=== PATIENT | male | born 1960 | race Caucasian/White ===

== ENCOUNTER 2018-01-11 10:47 | Emergency (ER) | payer MEDICAID ==
[~2018-01-11] VITALS: Ht 185.4 cm; Wt 111.1 kg
[2018-01-11] MEDS ORDERED: ONDANSETRON ODT 4 MG TAB PO ONE (11:30)
[2018-01-11] MEDS ORDERED: cloNIDine HCL 0.1 MG TAB PO ONE (11:30)
[2018-01-11] MEDS ORDERED: HYDROcodone-ACET 10/325MG TAB PO ONE (11:30)
[2018-01-11 12:29] VITALS: BP 159/109
[2018-01-11 12:44] LABS: Basophils # (auto) 0 uL; Eosinophils # (auto) 0 uL; Hematocrit 49.3 % (41.0-53.0); Hemoglobin 16.9 g/dL (13.5-17.5); Lymphocytes # (auto) 0.4 uL; Lymphocytes % (auto) 3.9 % (10.0-50.0); Mean Corpuscular Hemoglobin 33.6 pg (28.0-32.0); Mean Corpuscular Hgb Conc. 34.4 g/dL (32.0-36.0); Mean Corpuscular Volume 97.7 fL (80.0-100.0); Monocytes % (auto) 8.8 % (0.0-12.0); Neutrophils # (auto) 9.4 uL; Neutrophils % (auto) 87.3 % (37.0-80.0); Platelet Count (auto) 186 10^3/uL (140-450); Red Blood Cells 5.04 10^6/uL (4.5-5.90); Red Cell Distribution Width 13.4 % (11.8-14.3); White Blood Cell 10.8 10^3/uL (4.4-10.8)
[2018-01-11 13:03] LABS: Albumin 3.9 g/dL (3.4-5.0); BUN/Creatinine Ratio 16.7; Bilirubin, Total 1.2 mg/dL (0.2-1.0); Calcium 9.1 mg/dL (8.5-10.1); Potassium 3.2 mmol/L (3.5-5.1); Total Protein 7.7 g/dL (6.4-8.2)
[2018-01-11 14:26] LABS: INR 1.02 (0.9-1.15); Prothrombin Time 10.9 sec (9.27-12.13)
== END 2018-01-11 12:39 | disposition home or self-care (01) ==
LOC: ER 10:47
DX: R11.2 Nausea with vomiting, unspecified (principal); I16.0 Hypertensive urgency; R42 Dizziness and giddiness; I10 Essential (primary) hypertension; F17.210 Nicotine dependence, cigarettes, uncomplicated
CPT/HCPCS: 36415; 70450; 80053; 85025; 85610; 93005; 99285; Q0162

== ENCOUNTER 2018-03-07 14:04 | Observation (INO) | payer MEDICAID, OTHER ==
[~2018-03-07] VITALS: Ht 185.4 cm; Wt 111.1 kg
[2018-03-07 15:19] LABS: Alanine Aminotransferase 104 U/L (16-61); Albumin 4.4 g/dL (3.4-5.0); Alkaline Phosphatase 72 U/L (45-117); Anion Gap 12 (5-15); Aspartate Aminotransferase 74 U/L (15-37); BUN/Creatinine Ratio 13.5; Bilirubin, Total 1.5 mg/dL (0.2-1.0); Blood Alcohol < 3.0 mg/dL (0-5); Blood Urea Nitrogen 14 mg/dL (7-18); Carbon Dioxide 30 mmol/L (21-32); Chloride 94 mmol/L (98-107); GFR African American 94 mL/min; GFR Non-African American 78 mL/min; Glucose 129 mg/dL (74-106); Potassium 3.3 mmol/L (3.5-5.1); Sodium 136 mmol/L (136-145); Total Protein 8.6 g/dL (6.4-8.2)
[2018-03-07 15:49] LABS: Urine Bacteria NONE SEEN /hpf (None Seen); Urine Blood Negative /uL (Negative); Urine Mucus FEW (None Seen); Urine Specific Gravity 1.028 (1.001-1.035); Urine WBC 16 /hpf (0 - 3)
[2018-03-07 17:25] LABS: Basophils # (auto) 0 uL; Basophils % (auto) 0.2 % (0.0-2.0); Eosinophils # (auto) 0 uL; Monocytes # (auto) 0.8 uL; Neutrophils # (auto) 7.7 uL; White Blood Cell 9.4 10^3/uL (4.4-10.8)
[2018-03-07 17:27] LABS: Hematocrit 50.6 % (41.0-53.0); Hemoglobin 17.5 g/dL (13.5-17.5); Lymphocytes # (auto) 0.9 uL; Lymphocytes % (auto) 9.5 % (10.0-50.0); Mean Corpuscular Hemoglobin 34.3 pg (28.0-32.0); Mean Corpuscular Hgb Conc. 34.6 g/dL (32.0-36.0); Mean Corpuscular Volume 99.1 fL (80.0-100.0); Monocytes % (auto) 8.3 % (0.0-12.0); Nucleated Red Blood Cells % 0.1 %; Platelet Count (auto) 210 10^3/uL (140-450); Red Blood Cells 5.11 10^6/uL (4.5-5.90); Red Cell Distribution Width 14.1 % (11.8-14.3)
[2018-03-07 19:30] VITALS: BP 170/91
[2018-03-07] MEDS ORDERED: SODIUM CHLORIDE 0.9% 1,000 ML IVB ONE (19:42)
[2018-03-07] MEDS ORDERED: ONDANSETRON HCL 4 MG/2 ML VIAL IV ONE (19:45)
[2018-03-07 20:36] LABS: Magnesium 1.8 mg/dL (1.6-2.6)
[2018-03-07] MEDS ORDERED: POTASSIUM CHL 20 Meq TABLET PO ONE (23:00)
== END 2018-03-07 23:28 | disposition home or self-care (01) | DRG 249 ==
LOC: ER 14:08 → OVERFLOW 14:09 → ER 23:28
PROVIDERS: ADMIT Family Medicine; ATTEND Family Medicine
DX: R11.2 Nausea with vomiting, unspecified (principal); E87.6 Hypokalemia; F17.210 Nicotine dependence, cigarettes, uncomplicated; I10 Essential (primary) hypertension
CPT/HCPCS: 36415; 71045; 74176; 80053; 80320; 81001; 82150; 83690; 83735; 85025; 96361; 96374; 99285; G0378; J2405; J7030

== ENCOUNTER 2020-05-22 10:30 | Inpatient (IN) | payer OTHER ==
[~2020-05-22] VITALS: Ht 172.7 cm; Wt 98.4 kg
[2020-05-22] MEDS ORDERED: MORPHINE SULF INJ 2 MG/ML SYRINGE 1ML IV ONE (10:45)
[2020-05-22] MEDS ORDERED: THIAMINE 100mg/ml INJ (200mg/2ml VIAL) IV ONE ×2 (10:45→15:15)
[2020-05-22] MEDS ORDERED: ONDANSETRON HCL 4 MG/2 ML VIAL IV ONE (10:45)
[2020-05-22] MEDS ORDERED: SODIUM CHLORIDE 0.9% 1,000 ML IV ONE (10:45)
[2020-05-22 11:29] LABS: Basophils # (auto) 0.1 10 ^3/uL (0-0.2); Basophils % (auto) 0.9 % (0.0-2.0); Eosinophils # (auto) 0.1 10 ^3/uL (0-0.8); Eosinophils % (auto) 0.6 % (0.0-7.0); Hematocrit 35.8 % (41.0-53.0); Hemoglobin 12.3 g/dL (13.5-17.5); Lymphocytes # (auto) 2.4 10 ^3/uL (0.4-5.4); Lymphocytes % (auto) 26.7 % (10.0-50.0); Mean Corpuscular Hemoglobin 33.9 pg (28.0-32.0); Mean Corpuscular Hgb Conc. 34.4 g/dL (32.0-36.0); Mean Corpuscular Volume 98.7 fL (80.0-100.0); Monocytes # (auto) 0.8 10 ^3/uL (0-1.3); Monocytes % (auto) 8.5 % (0.0-12.0); Neutrophils # (auto) 5.7 10 ^3/uL (1.6-8.6); Neutrophils % (auto) 63.3 % (37.0-80.0); Platelet Count (auto) 271 10^3/uL (140-450); Red Blood Cells 3.63 10^6/uL (4.5-5.90); Red Cell Distribution Width 13.3 % (11.8-14.3)
[2020-05-22 11:38] LABS: INR 1.13 (0.9-1.15); Partial Thromboplastin Time 24.3 sec (23.0-31.2)
[2020-05-22 11:39] LABS: Albumin 3.6 g/dL (3.4-5.0); Anion Gap 11 (5-15); Blood Urea Nitrogen 48 mg/dL (7-18); Calcium 8.8 mg/dL (8.5-10.1); Carbon Dioxide 30 mmol/L (21-32); Chloride 97 mmol/L (98-107); Glucose 152 mg/dL (74-106); Magnesium 1.7 mg/dL (1.6-2.6); Sodium 138 mmol/L (136-145)
[2020-05-22 11:44] LABS: Alanine Aminotransferase 63 U/L (16-61); Alkaline Phosphatase 49 U/L (45-117); Aspartate Aminotransferase 59 U/L (15-37); Bilirubin, Total 1.1 mg/dL (0.2-1.0); Blood Alcohol < 3.0 mg/dL (0-5); GFR African American 68 mL/min; GFR Non-African American 56 mL/min; Lactate Dehydrogenase 266 U/L (87-241); Total Protein 6.7 g/dL (6.4-8.2)
[2020-05-22 11:47] LABS: Potassium 2.6 mmol/L (3.5-5.1)
[2020-05-22] MEDS ORDERED: POTASSIUM EFFERVESENT TAB 25 MEQ PO ONE (12:00)
[2020-05-22] MEDS: LORazepam 2MG/ML-1ML VIAL IV ONE ×2 (12:48→13:45)
[2020-05-22] MEDS ORDERED: POTASSIUM CHLORIDE 80 MEQ, LIDOCAINE 1% (LOCAL ANESTH.) 6 ML in SODIUM CHL 0.9% 500 ML IV ONE (15:15)
[2020-05-22] MEDS ORDERED: MORPHINE SULF INJ 2 MG/ML SYRINGE 1ML IV PRN ×2 (15:15→18:15)
[2020-05-22] MEDS ORDERED: POTASSIUM CHL 20 Meq TABLET PO ONE (15:15)
[2020-05-22] MEDS ORDERED: LACTATED RINGER'S 1,000 ML IV ONE (15:15)
[2020-05-22] MEDS ORDERED: NITROGLYCERIN 0.4 MG SL TAB SL PRN (15:15)
[2020-05-22] MEDS ORDERED: LORazepam 2MG/ML-1ML VIAL IV PRN (15:30)
[2020-05-22] MEDS ORDERED: MAGNESIUM SULFATE 1GM/100ML 100 ML IV ONE (15:30)
[2020-05-22] MEDS ORDERED: MULTIPLE VITAMINS W/ MINERALS TAB PO ONE (15:30)
[2020-05-22] MEDS ORDERED: FOLIC ACID 1 MG TAB PO ONE (15:30)
[2020-05-22] MEDS: POTASSIUM CHL 20 Meq TABLET PO SCH (15:56)
[2020-05-22] MEDS: THIAMINE 100mg/ml INJ (200mg/2ml VIAL) IV SCH (15:56)
[2020-05-22] MEDS ORDERED: PANTOPRAZOLE 40 MG/10 ML VIAL INJ IV ONE (17:30)
[2020-05-22] MEDS: SODIUM CHLORIDE 0.9% 1,000 ML IV SCH (17:44)
[2020-05-22] MEDS ORDERED: ONDANSETRON HCL 4 MG/2 ML VIAL IV PRN (18:15)
[2020-05-22] MEDS ORDERED: ACETAMINOPHEN 325 MG TAB PO PRN (18:15)
[2020-05-22] MEDS ORDERED: DOCUSATE SOD 100 MG CAP PO PRN (18:15)
[2020-05-22] MEDS ORDERED: ALUM & MAG HYDROX-SIMETH LIQ(MAALOX) 30 ML PO PRN (18:15)
[2020-05-22] MEDS ORDERED: HYDROcodone-ACET 5/325MG TAB PO PRN (18:15)
[2020-05-22] MEDS ORDERED: LORazepam 0.5 MG TAB PO PRN (18:15)
[2020-05-22] MEDS ORDERED: hydrALAZINE HCL 20 MG/ML VL IV PRN (18:30)
[2020-05-22 18:41] LABS: Calcium 8.3 mg/dL (8.5-10.1); Potassium 3.1 mmol/L (3.5-5.1)
[2020-05-22 18:45] LABS: BUN/Creatinine Ratio 38.5
[2020-05-22 18:56] LABS: Cholesterol 133 mg/dL (< 200); HDL Cholesterol 72 mg/dL (40-59); LDL Cholesterol 54 mg/dL (< 100); Triglycerides 75 mg/dL (< 150)
[2020-05-22] MEDS: chlordiazePOXIDE HCL 25 MG CAP PO SCH ×2 (20:00→22:00)
[2020-05-22 20:30] LABS: Urine Bacteria NONE SEEN /hpf (None Seen); Urine Blood Negative /uL (Negative); Urine Specific Gravity 1.018 (1.001-1.035); Urine Sperm PRESENT /hpf (None Seen); Urine WBC 3 /hpf (0 - 3)
[2020-05-22 20:41] LABS: Alcohol, Urine < 3.0 mg/dL (0-10); Amphetamine Screen, Urine POSITIVE (NEGATIVE); Barbiturate Scree,Urine NEGATIVE (NEGATIVE); Benzodiazephine Screen, Urine NEGATIVE (NEGATIVE); Cannabinoid Screen, Urine NEGATIVE (NEGATIVE); Cocaine Screen, Urine NEGATIVE (NEGATIVE); Phencyclidine Screen, Urine NEGATIVE (NEGATIVE)
[2020-05-22 20:48] LABS: Opiate Scree,Urine NEGATIVE (NEGATIVE)
[2020-05-22] MEDS: SUCRALFATE 1 GM TAB PO SCH (22:53)
[2020-05-22] MEDS: ATORVASTATIN 20 MG TAB PO SCH (22:54)
[2020-05-22 23:00] VITALS: BP 121/70
[2020-05-23 00:41] VITALS: BP 121/70
[2020-05-23] MEDS ORDERED: HCTZ25T PO (02:12)
[2020-05-23] MEDS ORDERED: METO-169 PO (02:12)
[2020-05-23] MEDS: SODIUM CHLORIDE 0.9% 1,000 ML IV SCH ×2 (04:50→17:59)
[2020-05-23 05:03] VITALS: BP 114/66
[2020-05-23] MEDS: chlordiazePOXIDE HCL 25 MG CAP PO SCH ×2 (06:25→17:57)
[2020-05-23] MEDS: SUCRALFATE 1 GM TAB PO SCH ×4 (06:26→22:01)
--- NOTE | 2020-05-23 07:30 | NUR ---
Opening Shift Note Assuming care of patient at this time. Patient is awake and alert. Patient denies pain. Patient shows no signs or symptoms of distress or shortness of breath. Bed is locked and lowered with side rails up x2. Instructed patient on the plan of care for today and to call for assistance. Call light within reach. Will continue to round hourly and as needed.
[2020-05-23] MEDS: ASPirin 81 mg TAB PO SCH (09:54)
[2020-05-23] MEDS: MULTIPLE VITAMINS W/ MINERALS TAB PO SCH (09:54)
[2020-05-23] MEDS: FOLIC ACID 1 MG TAB PO SCH (09:55)
[2020-05-23] MEDS: ENOXAPARIN SOD 40 MG/0.4 ML SYRINGE SC SCH (09:56)
[2020-05-23] MEDS: PANTOPRAZOLE 40 MG/10 ML VIAL INJ IV SCH (09:57)
[2020-05-23 12:50] VITALS: BP 107/65
--- NOTE | 2020-05-23 13:00 | NUR ---
Patient Behavior Patient has remained awake and alert this morning. No signs or symptoms of alcohol withdrawal. Patient has been easy to arouse when resting with eyes closed.
[2020-05-23] MEDS ORDERED: POTASSIUM EFFERVESENT TAB 25 MEQ PO ONE (14:45)
[2020-05-23 16:34] VITALS: BP 131/79
--- NOTE | 2020-05-23 18:37 | NUR ---
Closing Shift Note Patient resting in bed. No distress noted. Patient showing no signs or symptoms of alcohol withdrawal during this shift.
--- NOTE | 2020-05-23 19:23 | NUR ---
Opening Shift Note Assumed care of patient, awake and alert. No S/S of distress/SOB, or pain. Patient has no s/s of alcohol withdrawal. Instructed on POC and to call for assistance PRN, will continue to monitor for changes Q1hr and PRN. Safety precautions maintained bed is in lowest position and locked, bed rails 2x.
[2020-05-23 22:00] VITALS: BP 126/76
[2020-05-23] MEDS: ATORVASTATIN 20 MG TAB PO SCH (22:01)
--- NOTE | 2020-05-24 01:43 | NUR ---
PAIN PATIENT COMPLAINS OF GENERAL PAIN OF 6 ON A PAIN SCALE OF 0-10. MEDICATED PER MD ORDERS.
--- NOTE | 2020-05-24 02:43 | NUR ---
PAIN REASSESSMENT PATIENT STATES HAVING NO PAIN AT THIS TIME. WILL CONTINUE TO MONITOR Q1 AND PRN.
[2020-05-24 05:00] VITALS: BP 121/72
[2020-05-24 05:40] LABS: Eosinophils # (auto) 0.2 10 ^3/uL (0-0.8); Hemoglobin 9.8 g/dL (13.5-17.5); Monocytes # (auto) 0.3 10 ^3/uL (0-1.3); Red Blood Cells 2.84 10^6/uL (4.5-5.90)
[2020-05-24 05:42] LABS: Basophils # (auto) 0.1 10 ^3/uL (0-0.2); Basophils % (auto) 1.5 % (0.0-2.0); Eosinophils % (auto) 4.6 % (0.0-7.0); Hematocrit 28.8 % (41.0-53.0); Lymphocytes # (auto) 1.1 10 ^3/uL (0.4-5.4); Lymphocytes % (auto) 32.6 % (10.0-50.0); Mean Corpuscular Hemoglobin 34.4 pg (28.0-32.0); Mean Corpuscular Volume 101.2 fL (80.0-100.0); Monocytes % (auto) 7.4 % (0.0-12.0); Neutrophils # (auto) 1.9 10 ^3/uL (1.6-8.6); Neutrophils % (auto) 53.9 % (37.0-80.0); Nucleated Red Blood Cells % 0.1 %; Platelet Count (auto) 171 10^3/uL (140-450); Red Cell Distribution Width 13.3 % (11.8-14.3); White Blood Cell 3.5 10^3/uL (4.4-10.8)
[2020-05-24 05:48] LABS: Albumin 2.8 g/dL (3.4-5.0); Calcium 8.5 mg/dL (8.5-10.1); Potassium 3.6 mmol/L (3.5-5.1)
[2020-05-24 05:52] LABS: Bilirubin, Total 0.6 mg/dL (0.2-1.0); Total Protein 5.4 g/dL (6.4-8.2)
[2020-05-24] MEDS: chlordiazePOXIDE HCL 25 MG CAP PO SCH (06:33)
[2020-05-24] MEDS: SUCRALFATE 1 GM TAB PO SCH ×2 (06:33→11:30)
--- NOTE | 2020-05-24 07:18 | NUR ---
End of Shift Note Endorsed care to dayshift RN. At this time patient has no s/s of distress or SOB.
[2020-05-24] MEDS: SODIUM CHLORIDE 0.9% 1,000 ML IV SCH (07:33)
[2020-05-24 09:05] VITALS: BP 159/84
[2020-05-24] MEDS: MULTIPLE VITAMINS W/ MINERALS TAB PO SCH (09:29)
[2020-05-24] MEDS: PANTOPRAZOLE 40 MG/10 ML VIAL INJ IV SCH (09:29)
[2020-05-24] MEDS: FOLIC ACID 1 MG TAB PO SCH (09:29)
[2020-05-24] MEDS: ENOXAPARIN SOD 40 MG/0.4 ML SYRINGE SC SCH (09:29)
[2020-05-24] MEDS: ASPirin 81 mg TAB PO SCH (09:29)
[2020-05-24] MEDS: POTASSIUM CHL 20 Meq TABLET PO SCH (09:30)
[2020-05-24] MEDS: THIAMINE 100mg/ml INJ (200mg/2ml VIAL) IV SCH (09:33)
[2020-05-24 12:15] VITALS: BP 116/76
--- NOTE | 2020-05-24 13:52 | NUR ---
Nutrition Assessment Notes Please refer to link for full assessment notes. Est Energy needs: [id number] kcals (17-20 kcal/kgBW) Est Protein needs: 79-98 gms/day (0.8-1.0 gm/kgBW) Will continue to monitor and reassess prn. Addendum: 05/24/20 at [address] Amended: Links added.
[2020-05-24 16:05] VITALS: BP 138/73
[2020-05-24 16:17] VITALS: BP 138/76
--- NOTE | 2020-05-24 17:14 | NUR ---
DISCHARGE INSTRUCTIONS GIVEN TO PT. VERBALIZED UNDERSTANDING. ALL APPROPRIATE PAPERWORK SIGNED. IV AND TELE BOX REMOVED. PT DISCHARGED HOME WITH FAMILY.
[2020-05-24] MEDS ORDERED: chlordiazePOXIDE HCL 25 MG CAP PO SCH (18:00)
[2020-05-26] MEDS ORDERED: chlordiazePOXIDE HCL 25 MG CAP PO SCH (07:00)
--- NOTE | 2020-05-27 10:26 | NUR ---
[employer] W[employer] 05/24/20 No page regarding social service consult for alcohol use
== END 2020-05-24 16:55 | disposition home or self-care (01) | DRG 775 ==
LOC: ER 10:30 → EDBD 10:30 → TELE 10:31 → TELE-CENTR 23:20
PROVIDERS: ADMIT Hospitalist; ATTEND Internal Medicine
DX: F10.131 Alcohol abuse with withdrawal delirium (principal); N17.0 Acute kidney failure with tubular necrosis; E87.3 Alkalosis; Z20.828 Contact with and (suspected) exposure to other viral communicable diseases; K70.10 Alcoholic hepatitis without ascites; E86.0 Dehydration; D63.8 Anemia in other chronic diseases classified elsewhere; E66.9 Obesity, unspecified; E78.5 Hyperlipidemia, unspecified; E87.6 Hypokalemia; N18.9 Chronic kidney disease, unspecified; I12.9 Hypertensive chronic kidney disease with stage 1 through stage 4 chronic kidney disease, or unspecified chronic kidney disease; F17.210 Nicotine dependence, cigarettes, uncomplicated; F41.9 Anxiety disorder, unspecified; K29.20 Alcoholic gastritis without bleeding; Z68.33 Body mass index [BMI] 33.0-33.9, adult; Z98.2 Presence of cerebrospinal fluid drainage device
CPT/HCPCS: 36415; 36600; 70450; 71045; 74176; 80048; 80053; 80061; 80307; 80320; 81001; 82140; 82436; 82728; 82805; 83036; 83605; 83615; 83735; 83880; 84443; 84484; 85025; 85610; 85730; 86141; 87040; 87086; 87426; 87804; 93005; 96361; 96365; 96366; 96375; 96376; C9113; G0378; J2001